=== PATIENT | female | born 1970 | race Two or more races ===

== ENCOUNTER → 2016-11-22 | Day surgery (SDC) | payer OTHER ==
--- NOTE | 2016-11-25 12:55 | PATH ---
Surgical Pathology Report Patient Name: ELIE SOLIS [facility]. Rec. #: [id number] /Age/Gender: 1970 (Age: 46) / F Account: [id number] Location: [facility] Taken: 11/22/2016 Received: 11/22/2016 Reported: 11/25/2016 Physicians: Steve Ratliff M.D. Specimen(s) Received LEFT BREAST 11:00 1 CM FN CORE BIOPSY Clinical History Ultrasound findings: Probably benign Final Diagnosis BREAST, LEFT, 11:00, 1 CM FN, CORE BIOPSY: EPIDERMAL INCLUSION CYST. Electronically Signed Isabelle Clarke M.D. Gross Description Received in formalin, labeled "left breast 11:00, 1 cmfn," is a 1.1 x 1.1 x 0.2 cm aggregate of hayes-yellow soft tissue fragments and possible cyst contents. The formalin is filtered and the specimen is entirely submitted in one cassette. Time to formalin fixation: 2 minutes Total formalin fixation time: Approximately 8 hours. 11/22/201611/22/2016
== END | disposition home or self-care (01) ==
LOC: FRADUS-SUR 12:29
PROVIDERS: ATTEND Family Medicine
PROC: 0HBU0ZX Excision of Left Breast, Open Approach, Diagnostic (ICD-10-PCS; principal; 2016-11-22)
DX: N60.02 Solitary cyst of left breast (principal)
CPT/HCPCS: 19083; 87899; 88305-TC; A4648; G0206-TC

== ENCOUNTER 2016-11-26 15:26 | Emergency (ER) | payer OTHER ==
[2016-11-26 15:57] VITALS: BMI 24.1
[2016-11-26 18:00] LABS: BASOPHIL 0.4 % (0-2.0); EOSINOPHIL 0.4 % (0-4.5); MCH 29.7 pg (25.7-33.7); MCHC 33.1 g/dl (32.0-36.0); MEAN CELL VOLUME 89.8 fl (80-96); MEAN PLT VOLUME 12.2 fl (7.5-11.1); NEUTROPHILS 83.7 % (42.8-82.8); PLATELET COUNT 148 K/MM3 (134-434); RDW 14.1 % (11.6-15.6); WHITE BLOOD COUNT 15.5 K/mm3 (4.0-10.0)
[2016-11-26 18:14] LABS: ALBUMIN 3.8 g/dl (3.4-5.0); ALK PHOS 85 U/L (45-117); ANION GAP 11 (8-16); BILIRUBIN,TOTAL 0.6 mg/dL (0.2-1.0); CALCIUM 8.8 mg/dL (8.5-10.1); CO2 26 mmol/L (21-32); CREATININE 0.7 mg/dL (0.55-1.02); GLUCOSE,RANDOM 81 mg/dL (74-106); SGOT/AST 23 U/L (15-37); SGPT/ALT 36 U/L (12-78); TOT PROT 6.9 g/dl (6.4-8.2)
[2016-11-26 19:33] LABS: URINE APPEARANCE CLEAR; URINE BILIRUBIN NEGATIVE (NEGATIVE); URINE COLOR LTYELLOW; URINE GLUCOSE (UA) NEGATIVE (NEGATIVE); URINE KETONE NEGATIVE (NEGATIVE); URINE NITRITE POSITIVE (NEGATIVE); URINE PROTEIN NEGATIVE (NEGATIVE); URINE UROBILINOGEN NEGATIVE E.U./dl (0.2-1.0)
[2016-11-26 19:37] LABS: URINE BLOOD 1+ (NEGATIVE); URINE LEUK ESTERASE TRACE (NEGATIVE)
[2016-11-26 19:39] LABS: URINE BACTERIA FEW /hpf (NONE SEEN); URINE WBC 5 /hpf (3-5)
[2016-11-26] MEDS ORDERED: ACETAMINOPHEN 325 MG TABLET (FP) PO ONE (20:11)
[2016-11-26] MEDS ORDERED: ACETAMINOPHEN 325 MG TABLET (FP) ONE (20:12)
[2016-11-26] MEDS ORDERED: SODIUM CHLORIDE 1,000 ML IV STA (20:29)
[2016-11-26] MEDS ORDERED: LEVOFLOXACIN 750 MG IVPB 150 ML IVPB ONE ×2 (20:45→20:49)
[2016-11-26] MEDS ORDERED: SODIUM CHLORIDE 0.9% 500 ML INFUS.BAG IV ONE (21:48)
--- NOTE | 2016-11-26 21:59 | PDOC ---
[id number] 114/63 97 11/26/16 20:11 11/26/16 15:54 11/26/16 15:54 11/26/16 15:54 11/26/16 16:43 - Physical Exam Comments: 11/26/16 21:53 Spoke with patient regarding her symptoms. Patient states she developed high fever today approx 1 hour prior to her arrival. Patient reports she had a biopsy done on Friday for Lump in her left breast, and waiting results. Patient describes fever as sudden onset. She took Tylenol and came to hospital. Influenza- Neg CXR- WNL. No acute process identified. WBC- 15.5 Lactic Acid- 2.9 Fever- 101.0 UA: + Nitrites and Trace Leuk's General Appearance: Yes: Nourished, Moderate Distress HEENT: positive: EOMI, MAI, Normal ENT Inspection, Normal Voice, Symmetrical, TMs Normal, Pharynx Normal. negative: Tonsillar Exudate, Tonsillar Erythema, Nasal Congestion, Rhinorrhea, TM Bulging, TM Dull, TM Erythema Neck: positive: Trachea midline, Supple. negative: Lymphadenopathy (R), Lymphadenopathy (L) Respiratory/Chest: positive: Lungs Clear, Normal Breath Sounds. negative: Accessory Muscle Use, Labored Respiration, Rapid RR, Crackles, Rales, Stridor, Wheezing Cardiovascular: positive: Regular Rhythm, Regular Rate. negative: Edema, JVD, Murmur Gastrointestinal/Abdominal: positive: Normal Bowel Sounds, Soft. negative: Guarding, Rebound, Tenderness Musculoskeletal: positive: Normal Inspection. negative: CVA Tenderness Extremity: positive: Normal Capillary Refill, Normal Inspection, Normal Range of Motion. negative: Pedal Edema, Swelling, Erythema Integumentary: positive: Normal Color, Dry, Warm Neurologic: positive: flame channeler II-XII NML intact, Fully Oriented, Alert, Normal Mood/ Affect, Normal Response, Motor Strength /5 ED Treatment Course - LABORATORY CBC & Chemistry Diagram: 11/26/16 17:12 11/26/16 17:12 - ADDITIONAL ORDERS Additional order review: Laboratory Results 11/26/16 11/26/16 11/26/16 20:35 18:33 18:31 Sodium Potassium Chloride Carbon Dioxide Anion Gap BUN Creatinine Creat Clearance w eGFR Random Glucose Lactic Acid 2.932 H* Calcium Total Bilirubin AST ALT Alkaline Phosphatase Total Protein Albumin Urine Color Ltyellow Urine Appearance Clear Urine pH 7.0 Ur Specific [place] 1.004 Urine Protein Negative Urine Glucose (UA) Negative Urine Ketones Negative Urine Blood 1+ H Urine Nitrite Positive Urine Bilirubin Negative Urine Urobilinogen Negative Ur Leukocyte Esterase Trace H Urine RBC None Urine WBC 5 Ur Epithelial Cells Rare Urine Bacteria Few Urine HCG, Qual Negative 11/26/16 17:12 Sodium 140 Potassium 4.1 Chloride 103 Carbon Dioxide 26 Anion Gap 11 BUN 9 Creatinine 0.7 Creat Clearance w eGFR > 60 Random Glucose 81 Lactic Acid Calcium 8.8 Total Bilirubin 0.6 AST 23 ALT 36 Alkaline Phosphatase 85 Total Protein 6.9 Albumin 3.8 Urine Color Urine Appearance Urine pH Ur Specific [place] Urine Protein Urine Glucose (UA) Urine Ketones Urine Blood Urine Nitrite Urine Bilirubin Urine Urobilinogen Ur Leukocyte Esterase Urine RBC Urine WBC Ur Epithelial Cells Urine Bacteria Urine HCG, Qual 11/26/16 17:12 Influenza Types A,B Antigen (LARS) - Final Nasopharyngeal Swab - Final 11/26/16 17:12 RBC 4.85 MCV 89.8 MCHC 33.1 RDW 14.1 MPV 12.2 H Neutrophils % 83.7 H Lymphocytes % 9.8 Monocytes % 5.7 Eosinophils % 0.4 Basophils % 0.4 - RADIOLOGY Radiology Studies Ordered: Category Date Time Status CHEST CT WITH CONTRAST [CT] Stat CT Scan 11/26/16 21:50 Ordered - Medications Given in the ED: ED Medications Discontinued Medications Generic Name Dose Route Start Last Admin Trade Name Freq PRN Reason Stop Dose Admin Acetaminophen 650 mg 11/26/16 20:11 11/26/16 20:11 Tylenol - PO 11/26/16 20:12 650 mg NOW ONE Administration Sodium Chloride 1,000 mls @ 1,000 mls/hr 11/26/16 20:29 11/26/16 20:44 Normal Saline - IV 11/26/16 21:28 1,000 mls/hr ASDIR STA Administration Sodium Chloride 1,000 ml 11/26/16 21:48 11/26/16 21:48 Normal Saline - IV 11/26/16 21:49 1,000 ml NOW ONE Administration Medical Decision Making - Medical Decision Making 11/26/16 22:01 Lactic 2.932 WBC 15.5 w/ elevated Neurophils on Diff >83% UA + Nitrite w/ trace leuk's Plan: Blood Cultures IV Levaquin Fluid Bolus x 2000cc CT-chest w/ contrast r/o pneumonia, PE, abnormal lung pathology r/t biopsy. 11/26/16 23:42 CT-SCAN -NEG FOR ACUTE PATHOLOGY. PLAN: D/C TO HOME ON PO ABX FOLLOW UP WITH PCP THIS WEEK. *DC/Admit/Observation/Transfer Diagnosis at time of Disposition: Viral syndrome Fever Qualifiers: Fever type: other Qualified Code(s): R50.81 - Fever presenting with conditions classified elsewhere - Discharge Dispostion Disposition: HOME Condition at time of disposition: Improved Admit: No - Prescriptions Prescriptions: Levofloxacin [Levaquin -] 500 mg PO DAILY #10 tablet - Referrals Referrals: Jennifer Barnett MD [Primary Care Provider] - - Patient Instructions Printed Discharge Instructions: DI for Viral Syndrome Additional Instructions: FOLLOW UP WITH YOUR PRIMARY CARE PROVIDER THIS WEEK. CALL TO SCHEDULE APPOINTMENT. TAKE MEDICATIONS PRESCRIBED. RETURN IF SYMPTOMS WORSEN OR ANY CONCERNS FOR FURTHER EVALUATION. DRINK LOTS OF FLUIDS, REST. NO WORK X 4 DAYS. Print Language: FRENCH - Post Discharge Activity Work/School Note: Back to Work
[2016-11-26 23:26] VITALS: TEMP 98
[2016-11-27 00:07] VITALS: BP 118/73; PULSE 76
[2016-11-27] MEDS ORDERED: LEVOFLOXACIN 750 MG IVPB 150 ML IVPB ONE (20:30)
--- NOTE | 2016-12-01 18:18 | PDOC ---
Patient Follow-up (Call Back) - Post ED Follow - Up Condition at time of discharge: Improved Disposition at time of original discharge: HOME Reason for Call Back: Abnwl. Microbiology (blood culture from aerobic bottles was positive for streptococcus intermedius patient was discharged on Levaquin bacteria is not sensitive to Levaquin patient was called at [phone] to left message to call back for follow-up.)
== END 2016-11-27 00:06 | disposition home or self-care (01) ==
LOC: JER 15:26
PROC: 3E0337Z Introduction of Electrolytic and Water Balance Substance into Peripheral Vein, Percutaneous Approach (ICD-10-PCS; principal; 2016-11-26)
PROC: 3E03329 Introduction of Other Anti-infective into Peripheral Vein, Percutaneous Approach (ICD-10-PCS; 2016-11-26)
DX: B34.9 Viral infection, unspecified (principal); Z98.890 Other specified postprocedural states
CPT/HCPCS: 36415; 71010-TC; 71260-TC; 80053; 81003; 81015; 83605; 84703; 85025; 87040; 87086; 87186; 87804; 96361; 96365; 99284-25